=== PATIENT | male | born 1975 | race African-American/Black ===

== ENCOUNTER 2025-04-07 20:35 | Emergency (ER) | payer OTHER ==
[~2025-04-07] VITALS: Ht 177.8 cm; Wt 90.9 kg
[2025-04-07 20:53] VITALS: TEMP 98.4
[2025-04-07] MEDS ORDERED: IBUP-1493 PO (22:48)
[2025-04-07] MEDS ORDERED: METH-812 PO (22:48)
[2025-04-07] MEDS: KETOROLAC TROMETHAMINE 60 MG/2 ML VIAL IM ONE (22:58)
[2025-04-07 23:11] VITALS: BP 141/83; PULSE 77; RESP 16; O2SAT 97
== END 2025-04-07 23:31 | disposition home or self-care (01) ==
LOC: EMS 20:35
DX: S13.4XXA Sprain of ligaments of cervical spine, initial encounter (principal); E11.9 Type 2 diabetes mellitus without complications; E78.00 Pure hypercholesterolemia, unspecified; V43.52XA Car driver injured in collision with other type car in traffic accident, initial encounter; Y93.89 Activity, other specified; Y92.410 Unspecified street and highway as the place of occurrence of the external cause; Y99.8 Other external cause status
CPT/HCPCS: 99283; 96372; J1885